=== PATIENT | female | born 1990 | race Caucasian/White ===

== ENCOUNTER 2020-05-31 16:25 | Emergency (ER) | payer OTHER ==
[~2020-05-31] VITALS: Ht 170.2 cm; Wt 79.4 kg
[2020-05-31] MEDS ORDERED: ASA81BEC PO (16:37)
[2020-05-31] MEDS ORDERED: PREVACID30 MG PO (16:37)
[2020-05-31] MEDS ORDERED: ZYRTEC10 M5 PO (16:37)
[2020-05-31] MEDS ORDERED: TALTZ SYRI80 MG/1 ML SUBQ (16:38)
[2020-05-31 16:56] LABS: ABSOLUTE LYMPHOCYTES 2.9 thou/uL (0.8-5.3); ABSOLUTE MONOCYTES 0.5 thou/uL (0.0-1.2); ABSOLUTE NEUTROPHILS 10.1 thou/uL (1.6-8.1); BASOPHILS 0.1 %; EOSINOPHILS 0.3 %; HEMOGLOBIN 11.7 gm/dL (12.0-15.0); LYMPHOCYTES 21.3 %; MCHC 31.7 g/dL (28.0-37.0); MCV 72.7 fL (80.0-100.0); MONOCYTES 3.7 %; MPV 8.1 fl. (7.2-11.1); NUCLEATED RBCS 0 /100WBC; PLATELET COUNT* 442 thou/uL (150-400); POLYS 74.6 %; WBC 13.6 thou/uL (4.0-11.0)
[2020-05-31 17:03] LABS: URINE BILIRUBIN NEGATIVE (Negative); URINE BLOOD NEGATIVE (Negative); URINE CLARITY CLEAR; URINE COLOR YELLOW; URINE GLUCOSE-RANDOM NEGATIVE (Negative); URINE KETONES NEGATIVE (Negative); URINE LEUKOCYTES-REFLEX NEGATIVE (Negative); URINE NITRITE-REFLEX NEGATIVE (Negative); URINE PROTEIN NEGATIVE (Negative); URINE UROBILINOGEN 0.2 E.U./dl (0.2-1.0)
[2020-05-31 17:10] LABS: CALCIUM 8.2 mg/dL (8.5-10.1); CREATININE 0.9 mg/dL (0.6-1.3); POTASSIUM 3.8 mmol/L (3.5-5.1)
[2020-05-31 17:15] LABS: ALBUMIN 3.8 g/dL (3.4-5.0); TOTAL BILIRUBIN 0.2 mg/dL (<0.1-1.0); TOTAL PROTEIN 8.8 g/dL (6.4-8.2)
[2020-05-31 19:00] VITALS: BP 120/68
== END 2020-05-31 19:00 | disposition short-term general hospital (02) ==
LOC: M.ERS 16:25
PROVIDERS: Nurse Practitioner Family
DX: N83.511 Torsion of right ovary and ovarian pedicle (principal); R11.2 Nausea with vomiting, unspecified; Z88.1 Allergy status to other antibiotic agents; Z88.2 Allergy status to sulfonamides